=== PATIENT | female | born 1955 | race Caucasian/White ===

== ENCOUNTER → 2018-11-03 11:17 | Outpatient (POV) | payer BC, SELFPAY ==
[2018-11-03 11:45] VITALS: BP 154/90; PULSE 95; RESP 18; O2SAT 98; BMI 25.0
--- NOTE | 2018-11-03 12:43 | HMH.PMCON ---
Assessment and Plan (1) Sacroiliitis Current visit: Yes Status: Chronic Category: Medical Code(s): M46.1 - Sacroiliitis, not elsewhere classified - Assessment and plan all Dx Assessment and Plan for all problems:: Patient is failed over 6 months of conservative therapy. We will move forward with a right SI joint injection. I do believe it would be beneficial given the symptomology of the patient. Patient is continuing a home stretching program. We will follow-up with the patient after injection reassess her symptoms at that time. Dr. Elise has reviewed this note and agrees with this plan of care. This note was dictated using voice recognition software and may contain errors or omissions HPI - Data of Consult Consult date: 11/03/18 Requesting Physician: Ann Salas APRN Primary Care Provider: Dylan Sebastian MD Family Provider: Dr. Dylan Sebastian - Consult Narrative Reason for consult: Sacroiliitis History of present illness: Ms. Dotson is a 63 year old female who presents today for consultation in regards to her right SI joint pain. Patient has had pain for over a year. She states that constant. Some days are worse than others she has numbness and tingling in her but she she does have radiation into her groin and down her leg however not past the knee. She rates her pain today 5 out of 10. It is becoming difficult to do activities. Patient is failed conservative measures including medication and home stretching program. She is continuing her home stretching program. Patient and I talked about SI joint injection she would like to move forward with this. CC: Ann Salas APRN [facility] History I have reviewed the patient's past medical history: Yes Medical History: Reports:: Hyperlipidemia, Hypertension Denies:: Cancer, Diabetes Mellitus Type 1, Diabetes Mellitus Type 2, MRSA *Have you ever received a pneumonia vaccine?: Yes *Have you received a flu vaccine this season?: No Other Surgeries: Yes: Other (left foot injury repair) Amputation: No Fractures: No - *Social History Smoking Status: Never smoker Alcohol Intake: never *Occupational Status:: other Housing: house *Travel in the last 8 weeks: None Family Hx:: Non-contributory Review of Systems - Review of Systems ROS General: no recent weight change, no fever, no sleep disturbances Respiratory: no cough, no shortness of air, no recurring pulmonary infections Cardiovascular/Peripheral Vascular: No chest pain, No palpitations, no edema, no shortness of breath. Gastrointestinal: no incontinence, normal bowel movements reported Genitourinary: no incontinence Musculoskeletal:SI Joint pain Psychiatric: normal mood/ affect Neurological: [denies weakness in extremities], [denies balance issues] Meds Home Medications Medication Instructions Recorded Confirmed Type Atorvastatin Calcium [Atorvastatin 10 mg PO HS 11/03/18 11/03/18 History 10mg Tab] Cholecalciferol (Vitamin D3) 2,000 unit PO DAILY 11/03/18 11/03/18 History [Vitamin D3 1,000 Unit Cap] Meloxicam 15 mg PO DAILY 11/03/18 11/03/18 History Multivit-Min/FA/Lycopen/Lutein 1 each PO DAILY 11/03/18 11/03/18 History [Centrum Silver Tablet] [place]-3 Fatty Acids/Fish Oil 1 each PO DAILY 11/03/18 11/03/18 History [[place] 3 1,000 mg Softgel] hydroCHLOROthiazide [HCTZ 12.5mg 12.5 mg PO DAILY 11/03/18 11/03/18 History cap] Allergies Allergy/AdvReac Type Severity Reaction Status Date / Time codeine Allergy Intermediate Verified 11/03/18 11:45 Objective Vital signs: Pulse Resp BP Pulse Ox 95 H 18 154/90 H 98 11/03/18 11:45 11/03/18 11:45 11/03/18 11:45 11/03/18 11:45 Narrative: Physical Exam General: Alert and oriented x3, no acute distress, pleasant and cooperative, [on room air] Lungs: Resps E/U, Symmetrical chest expansion, Eyes: PERRL Musculoskeletal: Flexion and extension of lumbar spine somewhat g
--- NOTE | 2018-11-03 12:46 | P.CONS_ITS ---
Assessment and Plan (1) Sacroiliitis Current visit: Yes Status: Chronic Category: Medical Code(s): M46.1 - Sacroiliitis, not elsewhere classified - Assessment and plan all Dx Assessment and Plan for all problems:: Patient is failed over 6 months of conservative therapy. We will move forward with a right SI joint injection. I do believe it would be beneficial given the symptomology of the patient. Patient is continuing a home stretching program. We will follow-up with the patient after injection reassess her symptoms at that time. Dr. Elise has reviewed this note and agrees with this plan of care. This note was dictated using voice recognition software and may contain errors or omissions HPI - Data of Consult Consult date: 11/03/18 Requesting Physician: Ann Salas APRN Primary Care Provider: Dylan Sebastian MD Family Provider: Dr. Dylan Sebastian - Consult Narrative Reason for consult: Sacroiliitis History of present illness: Ms. Dotson is a 63 year old female who presents today for consultation in regards to her right SI joint pain. Patient has had pain for over a year. She states that constant. Some days are worse than others she has numbness and tingling in her but she she does have radiation into her groin and down her leg however not past the knee. She rates her pain today 5 out of 10. It is becoming difficult to do activities. Patient is failed conservative measures including medication and home stretching program. She is continuing her home stretching program. Patient and I talked about SI joint injection she would like to move forward with this. CC: Ann Salas APRN [facility] History I have reviewed the patient's past medical history: Yes Medical History: Reports:: Hyperlipidemia, Hypertension Denies:: Cancer, Diabetes Mellitus Type 1, Diabetes Mellitus Type 2, MRSA *Have you ever received a pneumonia vaccine?: Yes *Have you received a flu vaccine this season?: No Other Surgeries: Yes: Other (left foot injury repair) Amputation: No Fractures: No - *Social History Smoking Status: Never smoker Alcohol Intake: never *Occupational Status:: other Housing: house *Travel in the last 8 weeks: None Family Hx:: Non-contributory Review of Systems - Review of Systems ROS General: no recent weight change, no fever, no sleep disturbances Respiratory: no cough, no shortness of air, no recurring pulmonary infections Cardiovascular/Peripheral Vascular: No chest pain, No palpitations, no edema, no shortness of breath. Gastrointestinal: no incontinence, normal bowel movements reported Genitourinary: no incontinence Musculoskeletal:SI Joint pain Psychiatric: normal mood/ affect Neurological: [denies weakness in extremities], [denies balance issues] Meds Home Medications Medication Instructions Recorded Confirmed Type Atorvastatin Calcium [Atorvastatin 10 mg PO HS 11/03/18 11/03/18 History 10mg Tab] Cholecalciferol (Vitamin D3) 2,000 unit PO DAILY 11/03/18 11/03/18 History [Vitamin D3 1,000 Unit Cap] Meloxicam 15 mg PO DAILY 11/03/18 11/03/18 History Multivit-Min/FA/Lycopen/Lutein 1 each PO DAILY 11/03/18 11/03/18 History [Centrum Silver Tablet] [place]-3 Fatty Acids/Fish Oil 1 each PO DAILY 11/03/18 11/03/18 History [[place] 3 1,000 mg Softgel] hydroCHLOROthiazide [HCTZ 12.5mg 12.5 mg PO DAILY 11/03/18 11/03/18 History cap]
== END ==
PROVIDERS: PCP Family Medicine; Visit Provider Clinical Nurse Specialist Family Health
DX: M46.1 Sacroiliitis, not elsewhere classified (principal)
CPT/HCPCS: 99202

== ENCOUNTER → 2018-12-08 09:13 | Outpatient (POV) | payer BC, SELFPAY ==
--- NOTE | 2018-12-08 09:52 | HMH.PAINSOAP ---
[facility] Pain Management SOAP Note Subjective:: Present 63-year-old white female who presents today for follow-up after right SI joint injection. She has had 80% relief. Patient is much more active and able to take her walks in the evening. Her she rates her pain a 2 out of 10. Patient would like to repeat this 1 more time to see if we can get her even more benefit. She is tried conservative measures including medication, home stretching, she is continuing this. She does have a positive Mati's test Wilfredo's test and Bety test on the right side. She is also on anti-inflammatories. ROS General: no recent weight change, no fever, no sleep disturbances Respiratory: no cough, no shortness of air, no recurring pulmonary infections Cardiovascular/Peripheral Vascular: No chest pain, No palpitations, no edema, no shortness of breath. Gastrointestinal: no incontinence, normal bowel movements reported Genitourinary: no incontinence Musculoskeletal: Right SI joint pain Psychiatric: normal mood/ affect Neurological: [denies weakness in extremities], [denies balance issues] Objective:: Physical Exam General: Alert and oriented x3, no acute distress, pleasant and cooperative, [on room air] Lungs: Resps E/U, Symmetrical chest expansion, Eyes: PERRL Musculoskeletal: Flexion and extension of lumbar spine somewhat guarded secondary to pain, deep tendon reflexes normal, strength in upper and lower extremities [5/5], slightly antalgic gait noted the Neurological: speech clear, pump operator byproducts equal, no gross sensory deficits Assessment:: Sacroiliitis Plan:: We will plan a repeat right SI joint injection given the efficacy of this I believe it would be beneficial. Follow-up with the patient after this reassess her symptoms at that time she is been instructed to call the office if she has any issues prior to her next appointment. Dr. Elise has reviewed this note and agrees with this plan of care. This note was dictated using voice recognition software and may contain errors or omissions [facility] History I have reviewed the patient's past medical history: Yes Medical History: Reports:: Hyperlipidemia, Hypertension Denies:: Cancer, Diabetes Mellitus Type 1, Diabetes Mellitus Type 2, MRSA, Seizures *Have you ever received a pneumonia vaccine?: Yes *Have you received a flu vaccine this season?: No Other Medical History: Denies: Blood Transfusion Reaction Other Surgeries: Yes: Other (left foot injury repair) Amputation: No Fractures: No - *Social History Smoking Status: Never smoker Alcohol Intake: never *Occupational Status:: other Housing: house *Travel in the last 8 weeks: None Family Hx:: Coronary Artery Disease, Heart Attack, Hypertension
--- NOTE | 2018-12-08 09:55 | P.CONS_ITS ---
[facility] Pain Management SOAP Note Subjective:: Present 63-year-old white female who presents today for follow-up after right SI joint injection. She has had 80% relief. Patient is much more active and able to take her walks in the evening. Her she rates her pain a 2 out of 10. Patient would like to repeat this 1 more time to see if we can get her even more benefit. She is tried conservative measures including medication, home stretching, she is continuing this. She does have a positive Mati's test Wilfredo's test and Bety test on the right side. She is also on anti- inflammatories. ROS General: no recent weight change, no fever, no sleep disturbances Respiratory: no cough, no shortness of air, no recurring pulmonary infections Cardiovascular/Peripheral Vascular: No chest pain, No palpitations, no edema, no shortness of breath. Gastrointestinal: no incontinence, normal bowel movements reported Genitourinary: no incontinence Musculoskeletal: Right SI joint pain Psychiatric: normal mood/ affect Neurological: [denies weakness in extremities], [denies balance issues] Objective:: Physical Exam General: Alert and oriented x3, no acute distress, pleasant and cooperative, [on room air] Lungs: Resps E/U, Symmetrical chest expansion, Eyes: PERRL Musculoskeletal: Flexion and extension of lumbar spine somewhat guarded secondary to pain, deep tendon reflexes normal, strength in upper and lower extremities [5/5], slightly antalgic gait noted the Neurological: speech clear, dietetics director equal, no gross sensory deficits Assessment:: Sacroiliitis Plan:: We will plan a repeat right SI joint injection given the efficacy of this I believe it would be beneficial. Follow-up with the patient after this reassess her symptoms at that time she is been instructed to call the office if she has any issues prior to her next appointment. Dr. Elise has reviewed this note and agrees with this plan of care. This note was dictated using voice recognition software and may contain errors or omissions [facility] History I have reviewed the patient's past medical history: Yes Medical History: Reports:: Hyperlipidemia, Hypertension Denies:: Cancer, Diabetes Mellitus Type 1, Diabetes Mellitus Type 2, MRSA, Seizures *Have you ever received a pneumonia vaccine?: Yes *Have you received a flu vaccine this season?: No Other Medical History: Denies: Blood Transfusion Reaction Other Surgeries: Yes: Other (left foot injury repair) Amputation: No Fractures: No - *Social History Smoking Status: Never smoker Alcohol Intake: never *Occupational Status:: other Housing: house *Travel in the last 8 weeks: None Family Hx:: Coronary Artery Disease, Heart Attack, Hypertension
[2018-12-08 11:24] VITALS: BP 142/77; PULSE 66; RESP 18; O2SAT 98; BMI 25.0
== END ==
PROVIDERS: PCP Family Medicine; Visit Provider Clinical Nurse Specialist Family Health
DX: M46.1 Sacroiliitis, not elsewhere classified (principal)
CPT/HCPCS: 99212

== ENCOUNTER → 2019-08-06 14:30 | Outpatient (CLI) | payer BC, SELFPAY ==
--- NOTE | 2019-08-06 14:45 | XR_ITS ---
PROCEDURE: XR SHOULDER RT MIN 2V CLINICAL INDICATION: RT SHOULDER ROTATOR CUFF SYNDROME Shoulder pain COMPARISON: No exams were available for comparison FINDINGS: No fracture or dislocation. There is some minimal exostosis along the undersurface of the a chromium with subacromial stenosis which may result in impingement upon the rotator cuff. A small defect is present in the greater tubercle of the humerus well-circumscribed and may represent a small subchondral cyst which may also be seen with rotator cuff disease. IMPRESSION: Subacromial stenosis. Small well-circumscribed cystic area along the greater tubercle of the humerus which could be due to a subchondral cyst. These findings may be seen with rotator cuff disease and could be better evaluated with MRI if clinically warranted Dictated by: Antolin Martínez MD 08/06/2019 16:03 Electronically signed by Antolin Martínez MD in [place] 08/06/2019 16:03
== END ==
PROVIDERS: PCP Family Medicine; Visit Provider Family Medicine
DX: M75.101 Unspecified rotator cuff tear or rupture of right shoulder, not specified as traumatic (principal)
CPT/HCPCS: 73030

== ENCOUNTER 2019-09-24 08:00 | Outpatient (RCR) | payer BC, SELFPAY ==
--- NOTE | 2019-08-12 14:57 | HMH.OTOPEV ---
OT Inpatient Evaluation Rehab OT Outpatient Eval Start: 08/12/19 14:46 Freq: Status: Active Protocol: Document 08/12/19 14:46 SOHEILA (Rec: 08/12/19 14:57 SOHEILA [id number]) Electronically Signed By Modesto Chavez OT 08/12/19 14:46 Outpatient Therapy Subjective History Subjective History Pt is a 64 year old female who reports to therapy for initial evaluation to R shoulder. Pt explains her shoulder began hurting her ~2- 3 months ago. 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 She completed deep spring cleaning including block trimming, using large power tools, and cleaning 28 sets of windows. She has rested the arm, for ~1 month, but is continuing to have pain in the bicep tendon area and A/C joint. At this time she demonstrates with a SLIGHT decrease in AROM and strength at right shoulder. Pt will continue to be seen twice a week in order to address all deficits. Chief Complaint Pain,Stiff,Weakness Symptom Type Ache,Throb,Sharp,Dull,Burning Symptoms Relieved By Rest/Positioning Symptoms Aggravated By Physical Activity,Twisting, Lifting Prior Functional Limitations None Current Functional Limitations Reaching,Lifting,Housework, Dressing,Driving,Sleeping, Recreation Activity Symptom Description Intermittent,Activity Dependent Level of pain today (0-10) 0 Pain scale - at its best (0-10) 0 Pain scale - at its worst (0-10) 7 Shoulder/Elbow Eval Shoulder Objective Measurements Shoulder ROM Right Shoulder Abduction Active Range of 142 degrees Motion (degrees) Shoulder Flexion Active Range of Motion 135 degrees (degrees) Query Text: Shoulder External Rotation Active Range 60 degrees of Motion (degrees) Shoulder Internal Rotation Active Range 70 degrees of Motion (degrees) pain with active ROM shoulder exam left standard pain with passive ROM shoulde
--- NOTE | 2019-09-08 15:52 | HMH.RHREAS ---
Rehab Reassessment Rehab OP Re-assessment Start: 09/08/19 15:10 Freq: Status: Active Protocol: Document 09/08/19 15:11 RMARSHALL (Rec: 09/08/19 15:51 RMARSHALL [id number]) Electronically Signed By Modesto Chavez OT 09/08/19 15:11 Rehab Re-assessment Subjective Subjective It seems much better! Objective Objective Notes Pt continues to be seen twice a week in order to address L shoulder deficits. Each session pt engages in L shoulder AROM/AAROM/ Strengthening exercises. Pt also receives modalities in order to decrease pain/ inflammation at L shoulder. Assessment Progress Assessment Progressing as Expected Assessment Notes Pt reports she believes she has improved significantly since beginning therapy. Pt explains she notices she is able to move the shoulder better and is having less pain . As of right now pt rates her pain at a 2-3/10 at worst. Pt also reports she feels she is 50-75% better since beginning therapy. After re- evaluation pt presents with a great increase in AROM and strenth at right shoulder. 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 Pt continues to be slightly weak in right shoulder. Therapist would like to continue strengthening prior to discharge. Goals Not Met MMT goals Revised Goals Continue progressing towards all MMT goals written on initial evaluation. Plan Plan Continue with OT plan of care at this time. Frequency of Therapy 2x's a week Duration of therapy 2 more w
== END 2019-09-24 08:05 | disposition home or self-care (01) ==
LOC: OT 08:00
PROVIDERS: PCP Family Medicine; Visit Provider Family Medicine
DX: M75.101 Unspecified rotator cuff tear or rupture of right shoulder, not specified as traumatic (principal)
CPT/HCPCS: 97014; 97110; 97164; 97166; G0283

== ENCOUNTER → 2019-12-29 12:35 | Outpatient (POV) | payer BC, SELFPAY | PROVIDERS: Visit Provider Dermatology | DX: Z00.00 Encounter for general adult medical examination without abnormal findings (principal) ==

== ENCOUNTER → 2020-07-20 18:01 | Outpatient (CLI) | payer BC, SELFPAY | PROVIDERS: PCP Family Medicine | DX: H02.9 Unspecified disorder of eyelid (principal) ==

== ENCOUNTER → 2020-08-16 13:35 | Outpatient (POV) | payer BC, SELFPAY | PROVIDERS: Visit Provider Dermatology | DX: Z00.00 Encounter for general adult medical examination without abnormal findings (principal) ==

== ENCOUNTER 2021-03-05 11:23 | Emergency (ER) | payer MEDICARE, BC, SELFPAY ==
[2021-03-05 13:10] VITALS: BP 148/91; PULSE 102; RESP 21; TEMP 36.9; O2SAT 97; BMI 25.0
--- NOTE | 2021-03-05 13:39 | HMH.EDUTC ---
[facility] Disposition Clinical Impression: Sinusitis Qualifiers: Sinusitis location: maxillary Chronicity: acute Recurrence: non-recurrent Qualified Code(s): J01.00 - Acute maxillary sinusitis, unspecified Disposition: Home, Self-Care Condition on Discharge: Good Instructions: DI for Sinusitis Additional Instructions: Start antibiotic patient to take as ordered for a full length of time even if you feel better. Sinus infections do not get better overnight. It may take 2-3 days to notice much improvement so be sure to use conservative measures as discussed for symptoms. Flonase 1 spray each nostril daily to help with nasal congestion, sinus and ear pressure/information Increase fluids Humidifier/vaporizer as needed Tylenol and ibuprofen as needed for fever or pain. If symptoms do not improve or get worse return or be seen in the ER Follow-up with primary care this week Prescriptions: Fluticasone Propionate [Flonase 50mcg nasal spray 16gm] 1 spr NS DAILY 14 Days #9.9 ml Prescription Printed Azithromycin [Zithromax 250mg tab] 250 mg PO DIRECTED #6 tab Prescription Printed Referrals: Dylan Sebastian MD [Primary Care Provider] - Time of Disposition: 13:48 Medical Decision Making - Gonzalo Inquiry Pt receiving controlled substance: No Vital Signs: 03/05/21 13:10 Temperature 98.4 F Temperature Source Oral Pulse Rate [Right Brachial] 102 H Respiratory Rate 21 Blood Pressure [Right Arm] 148/91 H Blood Pressure Mean [Right Arm] 110 Blood Pressure Source [Right Arm] Automatic Cuff Blood Pressure Position [Right Arm] Sitting 02 Sat by Pulse Oximetry 97 Oxygen Delivery Method Room Air [facility] HPI - General Chief complaint: Urgent Treatment Center Stated complaint: h/a, congestion Time Seen by Provider: 03/05/21 13:44 Mode of Arrival: Ambulatory Source of Information: Patient Limitations: No Limitations Description of Symptoms (Recalled from Triage Doc. by RN): PATIENT C/O SINUS PRESSURE AND CONGESTION X 2 WEEKS HEENT Symptoms (Recalled from RN notes): Yes Resp Symptoms (Recalled from RN notes): No Skin Symptoms (Recalled from RN notes): No MS Symptoms (Recalled from RN notes): No Functional Status (Recalled from RN notes): WNL - History of Present Illness Provider Complaint: 66 yr old female presnets for sinus pressure,green nasal drainage,cough, sinus pain and pressure behind eyes for 2 weeks. - Related Data Home Medications Medication Instructions Recorded Confirmed Atorvastatin Calcium [Atorvastatin 10 mg PO HS 11/03/18 11/18/18 10mg Tab] Cholecalciferol (Vitamin D3) 2,000 unit PO DAILY 11/03/18 11/18/18 [Vitamin D3 1,000 Unit Cap] Meloxicam 15 mg PO DAILY 11/03/18 11/18/18 Multivit-Min/FA/Lycopen/Lutein 1 each PO DAILY 11/03/18 11/18/18 [Centrum Silver Tablet] [place]-3 Fatty Acids/Fish Oil 1 each PO DAILY 11/03/18 11/18/18 [[place]aty 3 1,000 mg Softgel] hydroCHLOROthiazide [HCTZ 12.5mg 12.5 mg PO DAILY 11/03/18 11/18/18 cap] Previous Rx's Medication Instructions Recorded Azithromycin [Zithromax 250mg 250 mg PO DIRECTED #6 tab 03/05/21 tab] Fluticasone Propionate [Flonase 1 spr NS DAILY 14 Days #9.9 ml 03/05/21 50mcg nasal spray 16gm] Allergies Allergy/AdvReac Type Severity Reaction Status Date / Time codeine Allergy Intermediate Verified 11/03/18 11:45 - Worker's Comp Is this a Worker's Comp case?: No [facility] History - Hepatitis A Screen Drug use history?: No High risk sexual behaviors?: No History of sexually transmitted infection?: No Currently employed?: No Childcare worker?: No Do you have indoor plumbing?: Yes Do you have electricity?: Yes Attestation statement:: This patient has been screened for Hepatitis A risk factors. I have reviewed the patient's past medical history: Yes Medical History: Reports:: Hyperlipidemia, Hypertension Denies:: Cancer, Diabetes Mellitus Type 1, Diabetes Mellitus Type 2, MRSA, Seizures Other Medical
[2021-03-05 14:03] VITALS: BP 148/91; PULSE 102; RESP 21; TEMP 36.9; O2SAT 97
== END 2021-03-05 14:10 | disposition home or self-care (01) ==
PROVIDERS: Emergency Provider Nurse Practitioner; PCP Family Medicine
DX: J01.00 Acute maxillary sinusitis, unspecified (principal); I10 Essential (primary) hypertension; E78.5 Hyperlipidemia, unspecified
CPT/HCPCS: G0463; 96372; 99202

== ENCOUNTER 2021-06-18 09:51 | Emergency (ER) | payer MEDICARE, SELFPAY ==
--- NOTE | 2021-06-18 10:07 | XR_ITS ---
PROCEDURE INFORMATION: Exam: XR Left Ankle Exam date and time: 06/18/2021 10:02 AM Age: 66 years old Clinical indication: Difficulty in walking and swelling, leg or foot; Additional info: Fall left foot and ankle pain/ bruising and swelling at ankle. TECHNIQUE: Imaging protocol: XR Left ankle. Views: 3 or more views. COMPARISON: No relevant prior studies available. FINDINGS: Bones/joints: No acute fracture or malalignment. Joint spaces are maintained. Osteopenia. Soft tissues: Soft tissue swelling about the lateral ankle. IMPRESSION: No acute fracture or malalignment.
--- NOTE | 2021-06-18 10:07 | XR_ITS ---
PROCEDURE INFORMATION: Exam: XR Left Foot Exam date and time: 06/18/2021 10:04 AM Age: 66 years old Clinical indication: Difficulty in walking and swelling, leg or foot; Additional info: Fall left foot and ankle pain/ bruising and swelling at ankle. TECHNIQUE: Imaging protocol: XR Left foot. Views: 3 or more views. COMPARISON: CR XR ANKLE LT MIN 3V 06/18/2021 10:02 AM FINDINGS: Bones/joints: No acute fracture or malalignment. Mild 1st MTP joint degenerative changes. Osteopenia. Os navicularis. Soft tissues: Normal. IMPRESSION: No acute fracture or malalignment.
[2021-06-18 10:26] VITALS: BP 148/82; PULSE 81; RESP 16; TEMP 37.1; O2SAT 98; BMI 24.6
--- NOTE | 2021-06-18 10:32 | HMH.EDUTC ---
[facility] [place] Clinical Impression: Left ankle sprain Qualifiers: Encounter type: initial encounter Involved ligament of ankle: unspecified ligament Qualified Code(s): S93.402A - Sprain of unspecified ligament of left ankle, initial encounter Disposition: Home, Self-Care Condition on Discharge: Good Instructions: DI for Ankle Sprain Additional Instructions: Rest the extremity, apply ice for 15 minutes as tolerated three or four times per day, Elevate the extremity as tolerated while you are resting. Take ibuprofen for pain. I sent in a prescription to your pharmacy. Follow up with Dr. Rankin (podiatry). Sometimes there can be fractures that don't show up well on the first set of x-rays. So, you should follow up if you continue to have symptoms. I put in a referral but you need to call her office and schedule an appointment. Follow up with your regular doctor. GO TO THE ER FOR ANY WORSENING SYMPTOMS Prescriptions: Ibuprofen [Ibuprofen 600mg Tablet] 600 mg PO Q6HP PRN #30 tab PRN Reason: Mild Pain Transmission Status: Pending to [facility] Referrals: Francisca Blake MD [Primary Care Provider] - Caitlin Rankin DPM [Staff Physician] - Time of Disposition: 11:28 Medical Decision Making - Medical Records Medical records reviewed: No: I reviewed the patient's medical records. - Gonzalo Inquiry Pt receiving controlled substance: No Vital Signs: 06/18/21 10:26 Temperature 98.8 F Temperature Source Oral Pulse Rate [Left] 81 Respiratory Rate 16 Blood Pressure [Right Arm] 148/82 H Blood Pressure Mean [Right Arm] 104 02 Sat by Pulse Oximetry 98 - Radiology Data #1 Image(s): Ankle Image Reviewed: Yes I reviewed the patient's radiology image, Yes I have reviewed radiologist's interpretation Preliminary Findings: Normal/NAD, No Fracture Seen PROCEDURE INFORMATION: Exam: XR Left Ankle Exam date and time: 06/18/2021 10:02 AM Age: 66 years old Clinical indication: Difficulty in walking and swelling, leg or foot; Additional info: Fall left foot and ankle pain/ bruising and swelling at ankle. TECHNIQUE: Imaging protocol: XR Left ankle. Views: 3 or more views. COMPARISON: No relevant prior studies available. FINDINGS: Bones/joints: No acute fracture or malalignment. Joint spaces are maintained. Osteopenia. Soft tissues: Soft tissue swelling about the lateral ankle. IMPRESSION: No acute fracture or malalignment. #2 Image(s): Foot/Toes Image Reviewed: Yes I reviewed the patient's radiology image, Yes I have reviewed radiologist's interpretation Preliminary Findings: Normal/NAD, No Fracture Seen PROCEDURE INFORMATION: Exam: XR Left Foot Exam date and time: 06/18/2021 10:04 AM Age: 66 years old Clinical indication: Difficulty in walking and swelling, leg or foot; Additional info: Fall left foot and ankle pain/ bruising and swelling at ankle. TECHNIQUE: Imaging protocol: XR Left foot. Views: 3 or more views. COMPARISON: CR XR ANKLE LT MIN 3V 06/18/2021 10:02 AM FINDINGS: Bones/joints: No acute fracture or malalignment. Mild 1st MTP joint degenerative changes. Osteopenia. Os navicularis. Soft tissues: Normal. IMPRESSION: No acute fracture or malalignment. [facility] [place] - General Stated complaint: ao left ankle injury Time Seen by Provider: 06/18/21 10:32 Mode of Arrival: Ambulatory Source of Information: Patient Limitations: No Limitations Description of Symptoms (Recalled from Triage Doc. by RN): pt states she missed her bottom step yesterday and is now having L ankle, pain, bruising and swelling. HEENT Symptoms (Recalled from RN notes): No Resp Symptoms (Recalled from RN notes): No Skin Symptoms (Recalled from RN notes): No MS Symptoms (Recalled from RN notes): Yes Functional Status (Recalled
[2021-06-18 11:23] VITALS: BP 148/82; PULSE 81; RESP 16; TEMP 37.1
== END 2021-06-18 11:33 | disposition home or self-care (01) ==
PROVIDERS: Emergency Provider Nurse Practitioner Family; PCP Family Medicine
DX: S93.402A Sprain of unspecified ligament of left ankle, initial encounter (principal); X50.1XXA Overexertion from prolonged static or awkward postures, initial encounter
CPT/HCPCS: 29515; 73610; 73630; 99212; G0463

== ENCOUNTER → 2022-11-07 10:03 | Outpatient (CLI) | payer MEDICARE, SELFPAY ==
[2022-11-07 10:18] LABS: Coronavirus 19, PCR Not Detected (NotDetected); Influenza A, PCR Not Detected (NotDetected); Influenza B, PCR Not Detected (NotDetected)
== END ==
PROVIDERS: PCP Family Medicine; Visit Provider Internal Medicine
DX: J02.9 Acute pharyngitis, unspecified (principal)
CPT/HCPCS: 87070; 87636

== ENCOUNTER → 2022-11-12 15:08 | Outpatient (CLI) | payer MEDICARE, SELFPAY ==
[2022-11-12 13:08] LABS: Basophils % 0.6 % (0.1-2.0); Eosinophils # 0.1 K/mm3 (0.0-0.4); Hemoglobin 14.8 g/dL (12.2-16.2); Lymphocytes # 1.3 K/mm3 (0.7-4.5); Lymphocytes % 37.6 % (10-50); Mean Corpuscular HGB Conc 33.6 g/dL (31.8-35.4); Mean Corpuscular Hemoglobin 31.8 pg (27.0-31.2); Mean Corpuscular Volume 94.6 fl (81-99); Mean Platelet Volume 8.2 fl (7.4-10.4); Monocytes # 0.2 K/mm3 (0.1-1.0); Monocytes % 6.3 % (1.7-9.3); Neutrophils # 1.8 K/mm3 (1.8-7.8); Neutrophils % 51.5 % (37.0-80.0); Platelet Count 242 K/mm3 (142-424); Red Blood Count 4.65 M/mm3 (4.20-5.40); Red Cell Distribution Width 13.3 % (11.5-17.5); White Blood Count 3.6 K/mm3 (4.8-10.8)
[2022-11-12 14:15] LABS: Alanine Aminotransferase 29 U/L (12-78); Albumin Level 4.9 g/dl (3.5-5.0); Albumin/Globulin Ratio 1.6 (1.1-1.8); Alkaline Phosphatase 116 U/L (38-126); Aspartate Amino Transferase 41 U/L (14-36); Bilirubin,Total 0.3 mg/dl (0.2-1.3); Blood Urea Nitrogen 19 mg/dl (7-17); Calcium 9.5 mg/dl (8.4-10.2); Carbon Dioxide 26 mmol/L (22.0-30.0); Chloride 101 mmol/L (98-107); Estimated Glomerular Filt Rate 63 ml/min (>60); GFR (African American) 76 ML/MIN (>60); Globulin 3.1 g/dL (1.3-3.2); Glucose 104 mg/dl (74-100); Sodium 140 mmol/L (136-145)
== END ==
PROVIDERS: PCP Nurse Practitioner Family; Visit Provider Nurse Practitioner Family
DX: J01.00 Acute maxillary sinusitis, unspecified (principal); I10 Essential (primary) hypertension
CPT/HCPCS: 80053; 85025

== ENCOUNTER → 2022-12-03 12:00 | Outpatient (CLI) | payer MEDICARE, SELFPAY ==
[2022-12-03 16:04] LABS: Microscopic, Urine URINE MICROSCOPIC (MICROSCOPIC)
[2022-12-03 16:22] LABS: Appearance,Urine CLEAR (Clear); Bilirubin,Urine Negative (Negative); Blood, Urine Negative (Negative); Color,Urine YELLOW (Yellow); Glucose,Urine (UA) Negative (Negative); Ketones,Urine Negative (Negative); Leukocyte Esterase,Urine Negative (Negative); Nitrate,Urine Negative (Negative); Protein,Urine TRACE (Negative); Specific Gravity, Urine 1.015 (1.005-1.030); Urobilinogen,Urine 0.2 EU/dl (0.2)
[2022-12-03 16:29] LABS: Squamous Epithelial Cell,Urine Occasional #/hpf (0-5); WBC,Urine Occasional #/hpf (0-3)
[2022-12-03 17:42] LABS: Basophils % 0.9 % (0.1-2.0); Eosinophils # 0.5 K/mm3 (0.0-0.4); Hematocrit 45.4 % (37.0-47.0); Hemoglobin 14.8 g/dL (12.2-16.2); Lymphocytes # 1.3 K/mm3 (0.7-4.5); Mean Corpuscular HGB Conc 32.5 g/dL (31.8-35.4); Mean Corpuscular Hemoglobin 30.6 pg (27.0-31.2); Mean Platelet Volume 9.9 fl (7.4-10.4); Monocytes # 0.3 K/mm3 (0.1-1.0); Monocytes % 6.3 % (1.7-9.3); Neutrophils # 2.2 K/mm3 (1.8-7.8); Neutrophils % 50.9 % (37.0-80.0); Platelet Count 357 K/mm3 (142-424); Red Blood Count 4.83 M/mm3 (4.20-5.40); Red Cell Distribution Width 13.6 % (11.5-17.5); White Blood Count 4.3 K/mm3 (4.8-10.8)
[2022-12-03 18:15] LABS: Hemoglobin A1C 5.7 % (4.0-6.0)
[2022-12-03 18:55] LABS: Alanine Aminotransferase 31 U/L (12-78); Albumin Level 5.1 g/dl (3.5-5.0); Albumin/Globulin Ratio 1.7 (1.1-1.8); Alkaline Phosphatase 112 U/L (38-126); Anion Gap 16.7 mEq/L (5-15); Aspartate Amino Transferase 38 U/L (14-36); Bilirubin,Total 0.7 mg/dl (0.2-1.3); Blood Urea Nitrogen 20 mg/dl (7-17); Calcium 9.8 mg/dl (8.4-10.2); Carbon Dioxide 28 mmol/L (22.0-30.0); Chloride 100 mmol/L (98-107); Cholesterol 265 mg/dl (140-200); Estimated Glomerular Filt Rate 63 ml/min (>60); GFR (African American) 76 ML/MIN (>60); Glucose 92 mg/dl (74-100); HDL Cholesterol 67 mg/dl (40-60); Magnesium 2.3 mg/dl (1.6-2.3); Phosphorous 4.1 mg/dl (2.5-4.5); Potassium 4.7 mmoL/L (3.5-5.1); Sodium 140 mmol/L (136-145); Total Protein,Serum 8.1 g/dl (6.3-8.2); Triglycerides 224 mg/dl (30-150); VLDL Cholesterol 45 mg/dL (0-40)
[2022-12-03 19:06] LABS: Direct LDL Cholesterol 129.86 mg/dL (100-129)
[2022-12-03 19:11] LABS: Free T4 (Free Thyroxine) 1.22 ng/dl (0.78-2.19)
[2022-12-03 19:12] LABS: 25-OH Vitamin D, Total 79.7 ng/mL (30-100)
[2022-12-03 19:25] LABS: Thyroid Stimulating Hormone 1.69 uIU/mL (0.465-4.68)
[2022-12-03 19:44] LABS: Vitamin B12 638 pg/mL (239-931)
== END ==
PROVIDERS: PCP Nurse Practitioner Family; Visit Provider Nurse Practitioner Family
DX: I10 Essential (primary) hypertension (principal); R53.83 Other fatigue; E78.5 Hyperlipidemia, unspecified; R25.2 Cramp and spasm; E55.9 Vitamin D deficiency, unspecified; R73.01 Impaired fasting glucose
CPT/HCPCS: 80053; 80061; 81001; 82306; 82607; 83036; 83735; 84100; 84155; 84439; 84443; 85025; 87086

== ENCOUNTER → 2022-12-10 08:59 | Outpatient (CLI) | payer MEDICARE, SELFPAY ==
--- NOTE | 2022-12-10 08:59 | XR_ITS ---
FINAL REPORT TECHNIQUE: Bone densitometry calculations of the lumbar spine and left hip were obtained. CLINICAL HISTORY: postmenopausal DEXA screening FINDINGS: Using L1-4, the bone mineral density of the spine is 0.89 g/cm2, corresponding to T-score of -1.4. Using the left hip, the bone mineral density of the femoral neck is 0.65 g/cm2, corresponding to a T-score of -2.4. Using the right hip, the bone mineral density of the femoral neck is 0.70 g/cm2, corresponding to a T-score of - 1.9 NOTE: T-score: Standard deviation compared with peak bone mass of young adult mean. *Following the recommendations of the International Society of Bone densitometry, classification of hip BMD is based on the lower of two T-scores; total hip or femoral neck. IMPRESSION: Diminished bone mineral density of the lumbar spine and hips consistent with osteopenia. Reviewed, Interpreted and Dictated by Grupo Erwin MD Transcribed by Lynn Jaquez Authenticated and . [facility]
== END ==
PROVIDERS: PCP Nurse Practitioner Family; Visit Provider Nurse Practitioner Family
DX: N95.9 Unspecified menopausal and perimenopausal disorder (principal); Z13.820 Encounter for screening for osteoporosis
CPT/HCPCS: 77080

== ENCOUNTER → 2022-12-25 13:40 | Outpatient (CLI) | payer MEDICARE, SELFPAY ==
--- NOTE | 2022-12-25 13:44 | XR_ITS ---
FINAL REPORT CLINICAL HISTORY: Foot [place] FINDINGS: 3 views of the left foot were obtained. There is no acute fracture or dislocation. There are mild degenerative changes. There is a small plantar calcaneal spur. There is a chronic deformity of the first proximal phalanx. There is presumed postoperative change in the proximal aspect of the great toe. IMPRESSION: No acute process. Reviewed, Interpreted and Dictated by Zoltan Bennett III, MD Transcribed by Tj Rodriguez Authenticated and [facility]
--- NOTE | 2022-12-25 13:44 | XR_ITS ---
FINAL REPORT CLINICAL HISTORY: Foot pain FINDINGS: Right foot Three views were obtained. There is no acute fracture or dislocation. There are mild degenerative changes. No soft tissue abnormality is identified. IMPRESSION: No acute process. Reviewed, Interpreted and Dictated by Zoltan Bennett III, MD Transcribed by Kimberley Nelson Authenticated and [facility]
== END ==
PROVIDERS: PCP Nurse Practitioner Family; Visit Provider Nurse Practitioner Family
DX: M79.671 Pain in right foot (principal); M79.672 Pain in left foot
CPT/HCPCS: 73630

== ENCOUNTER → 2023-01-31 23:00 | Outpatient (CLI) | payer MEDICARE, SELFPAY | PROVIDERS: PCP Nurse Practitioner Family; Visit Provider Internal Medicine | DX: J06.9 Acute upper respiratory infection, unspecified (principal) ==

== ENCOUNTER → 2023-01-31 23:00 | Outpatient (CLI) | payer MEDICARE, SELFPAY ==
[2023-01-31 14:32] LABS: Adenovirus,PCR Not Detected (NotDetected); Coronavirus 19, PCR Not Detected (NotDetected); Coronavirus 229E Not Detected (NotDetected); Coronavirus NL63 Not Detected (NotDetected); Coronavirus OC43 Not Detected (NotDetected); Coronovirus HKU1,PCR Not Detected (NotDetected); Human Metapneumovirus Not Detected (NotDetected); Influenza A, PCR Not Detected (NotDetected); Influenza AH1, 2009 Not Detected (NotDetected); Influenza AH1, PCR Not Detected (NotDetected); Influenza AH3,PCR Not Detected (NotDetected); Influenza B, PCR Not Detected (NotDetected); Parainfluenza 1, PCR Not Detected (NotDetected); Parainfluenza 2, PCR Not Detected (NotDetected); Parainfluenza 3, PCR Not Detected (NotDetected); Parainfluenza 4, PCR Not Detected (NotDetected); Respiratory Syncytial Virus Not Detected (NotDetected); Rhinovirus/Enterovirus Not Detected (NotDetected)
== END ==
PROVIDERS: PCP Nurse Practitioner Family; Visit Provider Internal Medicine
DX: J06.9 Acute upper respiratory infection, unspecified (principal); J02.9 Acute pharyngitis, unspecified; R50.9 Fever, unspecified; R05.9 Cough, unspecified; R53.83 Other fatigue; B96.89 Other specified bacterial agents as the cause of diseases classified elsewhere; R09.89 Other specified symptoms and signs involving the circulatory and respiratory systems
CPT/HCPCS: 87070; 87205; 87632; 87635

== ENCOUNTER 2023-02-07 11:56 | Day surgery (SDC) | payer MEDICARE, SELFPAY ==
[2023-01-29 11:19] VITALS: BMI 26.6
[2023-02-07 12:29] VITALS: BP 131/81; PULSE 75; RESP 18; TEMP 36.5; O2SAT 99
--- NOTE | 2023-02-07 12:38 | EXP.ANES.CKL ---
[facility] Disclaimer: The information contained in this section may have been updated after the patient was seen, as this information can be updated by other users. Medical History Hyperlipidemia Hypertension Left ankle sprain Sacroiliitis Sinusitis URI (upper respiratory infection) Vaginal yeast infection Surgical History H/O: hysterectomy History of D&C Family History Mother Hypertension Father Hypertension Social History Smoking Status: Never smoker alcohol intake: never substance use type: denies use current occupational status: employed Travel in the last 8 weeks: None housing: house current occupational exposures/hazards: No caffeine: Yes [facility] Anesthesia Checklist Patient Identification Patient Identification: Arm Band and Verbal (Name & ) Structural Data Admitted From: Home Planned Operative Procedure/s: Colonoscopy Consent for Planned Operative Procedure(s) Verified: Yes NPO Status Verified Time NPO: 00:00 Additional verifications Anesthesia Reactions: No Hx Blood Transfusions: No Blood Transfusion Reaction: No Airway Assessment Mallampati Score:: Class II C-Spine Mobility Assessed: Yes TMJ Mobility Assessed: Yes Dentition: Dentures-poor fitting Neurological Assessment Level of Consciousness: Awake Hx Seizures: No Numbness or tingling in extremities: No Anesthesia Plan Anesthesia Risk discussed: Yes Anesthesia Plan: Verified ASA Class: II Anesthesia Type: MAC
[2023-02-07 13:14] VITALS: O2SAT 99
[2023-02-07 13:39] VITALS: BP 120/66; PULSE 77; RESP 16; TEMP 36.1; O2SAT 99
--- NOTE | 2023-02-07 13:39 | HMH.SCOPE ---
Procedure: Date: 02/07/23 Patient Date of :: 1955 Procedure Performed:: Screening colonoscopy Indications:: Colon cancer screening Performing Provider:: James Ramírez MD Referring Provider:: Toyin Mabry APRN Sedation:: Propofol Procedure:: After placing the patient in the left lateral decubitus position, the colonoscopy was gently inserted into the rectum and under direct visualization advanced to the cecum which was identified by transillumination in the right lower quadrant, identification of the ileocecal valve, appendiceal orifice, and cecal strap. Color, texture, mucosa, and anatomy of the colon were carefully examined with the scope. Findings:: Anal canal: normal Rectum: normal Sigmoid colon: normal without polyps or inflammatory changes Descending colon: normal without polyps or inflammatory changes Splenic flexure: normal Transverse colon: normal without polyps or inflammatory changes Hepatic flexure: normal Ascending colon: normal without polyps or inflammatory changes Cecum: normal Terminal ileum: not visualized Impression: Normal colonoscopy Recommendations:: Follow up examination in about TEN years or so, sooner if clinically indicated. Complications:: None Estimated blood obtained (mL): 0 Colonoscopy Component Colonoscopy Component Was a colonoscopy performed during today's procedure?: Yes Recommended follow up colonoscopy of at least 10 years?: Yes
[2023-02-07 13:49] VITALS: BP 145/77; PULSE 80; RESP 16; O2SAT 100
[2023-02-07 13:59] VITALS: BP 124/76; PULSE 82; RESP 16; O2SAT 100
== END 2023-02-07 14:25 | disposition home or self-care (01) ==
PROVIDERS: PCP Nurse Practitioner Family; Visit Provider Internal Medicine Gastroenterology
PROC: 0DJD8ZZ Inspection of Lower Intestinal Tract, Via Natural or Artificial Opening Endoscopic (ICD-10-PCS; CPT 45378; principal; 2023-02-07 13:00)
DX: K59.04 Chronic idiopathic constipation (principal); Z12.11 Encounter for screening for malignant neoplasm of colon
CPT/HCPCS: G0121

== ENCOUNTER → 2023-03-11 14:29 | Outpatient (CLI) | payer MEDICARE, SELFPAY ==
[2023-03-11 14:55] LABS: Alanine Aminotransferase 33 U/L (12-78); Albumin Level 4.5 g/dl (3.5-5.0); Albumin/Globulin Ratio 1.6 (1.1-1.8); Alkaline Phosphatase 88 U/L (38-126); Anion Gap 11.3 mEq/L (5-15); Aspartate Amino Transferase 38 U/L (14-36); Bilirubin,Total 0.5 mg/dl (0.2-1.3); Blood Urea Nitrogen 28 mg/dl (7-17); Carbon Dioxide 27 mmol/L (22.0-30.0); Chloride 103 mmol/L (98-107); Chol/HDL Ratio 3.2 (1-3.5); Cholesterol 203 mg/dl (140-200); Estimated Glomerular Filt Rate 62 ml/min (>60); GFR (African American) 76 ML/MIN (>60); Globulin 2.8 g/dL (1.3-3.2); Glucose 93 mg/dl (74-100); HDL Cholesterol 64 mg/dl (40-60); Potassium 4.3 mmoL/L (3.5-5.1); Sodium 137 mmol/L (136-145); Total Protein,Serum 7.3 g/dl (6.3-8.2); Triglycerides 175 mg/dl (30-150); VLDL Cholesterol 35 mg/dL (0-40)
[2023-03-11 15:06] LABS: Direct LDL Cholesterol 102.94 mg/dL (100-129)
== END ==
PROVIDERS: PCP Nurse Practitioner Family; Visit Provider Nurse Practitioner Family
DX: E78.5 Hyperlipidemia, unspecified (principal); I10 Essential (primary) hypertension
CPT/HCPCS: 80053; 80061

== ENCOUNTER → 2023-03-13 16:00 | Outpatient (CLI) | payer MEDICARE, SELFPAY | LOC: LAB.DROPOF 16:01 | PROVIDERS: PCP Nurse Practitioner Family; Visit Provider Nurse Practitioner Family | DX: B35.1 Tinea unguium (principal); M79.675 Pain in left toe(s) | CPT/HCPCS: 87102; 87206; 87220 ==

== ENCOUNTER 2023-05-09 08:21 | Outpatient (CLI) | payer MEDICARE, SELFPAY ==
--- NOTE | 2023-05-09 08:22 | CT_ITS ---
APPROVED REPORT Trial Judge: CLINICAL INDICATION Chest Pain TECHNIQUE Image Acquisition: A 128 slice MDCT scanner ([id number] [id number]) was used for data acquisition. A noncontrast coronary calcium scan was performed. A CT attenuation threshold of 130 Hounsfield units (HU) was used for the detection of calcium in contiguous voxels of 1 sq mm in area to be counted as individual lesions. Bolus tracking in the ascending aorta with a threshold of 180 HU was performed. Immediately afterwards, ECG synchronized cardiac CT was then performed from the cardiac base to apex using retrospective gating with ECG tube current modulation. A total of 85 mL of Isovue 370 mg/mL contrast medium was administered at 5 mL/sec followed by a saline flush using a biphasic injection protocol. A tube voltage of 120 KVp was used. The patient received the following medications prior to the cardiac CT. 75 mg of oral metoprolol 15 mg of oral ivabradine 0.8 mg of sublingual nitroglycerin The average heart rate at the time of acquisition was 55 bpm and regular. Image Reconstruction Transaxial images were reconstructed at 0.67 mm slide thickness. Data was reviewed interactively on an advanced workstation capable of 2 and 3-dimensional displays in all conventional reconstruction formats, including multiplanar reformations, maximum intensity projections, curved multiplanar reformations, and volume rendered reconstructions. When applicable, selected routine images describing the relevant coronary anatomy and pathology were saved and sent to PACS. Complications None Technical Quality Overall image quality was good. Coronary artery opacification was adequate. Total DLP (Dose-Length Product) is 1436.5 mGy-cm. The reported value represents the total of one or more individual components during the CT acquisition of this date and at this time, and as such, the same value may appear in more than one CT report depending on the interpreting/reporting physicians. COMPARISON None FINDINGS CT Coronary Calcium Scoring LMA (Left Main Artery) = 0 LAD (Left Anterior Descending) = 533 LCX (Left Coronary Circumflex) = 1 RCA (Right Coronary Artery) = 31 Total Calcium Score = 565 using the AJ-130 method. The observed calcium score of 565 is at 95th percentile for subjects of the same age, sex, and race/ethnicity. The interpretation of the calcium heart score is based on the following continuum*: 0 = no calcified plaque detected (risk of coronary artery disease is very low ??? less than 5%) 1-10 = calcium detected in extremely minimal levels (risk of coronary diseases is still low ??? less than 10%) 11-100 = mild levels of plaque detected with certainty (mild or minimal narrowing of heart arteries is likely) 101-400 = definite,at least moderate levels of plaque detected (relatively high risk of a heart attack within 3-5 years) >401-999 = extensive levels of plaque detected (high risk of heart attack, high levels of vascular disease are present, high likelihood of at least one significant coronary narrowing) *The calcium heart score quantifies the burden of coronary calcification/plaque in the coronary arteries. The calcium heart score is not able to evaluate the presence or burden of non-calcified (i.e. soft) plaque. There is also mild calcification in the mitral annulus and the ascending and descending thoracic aorta. Coronary CT Angiography The coronary arterial system is right dominant. Quantitative Stenosis Grading: Left Main (LM): The left main originates normally from the left sinus of Valsalva. The LM bifurcates into the left anterior descending artery and left circumflex artery. There is mild noncalcified ostial LM with< 30% luminal stenosis. There is also calcified plaque in the distal LM with < 30% luminal stenosis. Left Anterior Descending (LAD) and Diagonal Branches: The LAD gives off 3 diagonal branch(es). There are multiple foci of mixed calcified/noncalcified plaque in the proximal, with up to 70-90% luminal stenosis. There is no evidence of LAD-myocardial bridge. Left Circumflex (LCX) and Obtuse Marginals (OM): The LCX gives off 1 Obtuse Marginal (OM) branch(es). There is minimal calcification in the proximal LCX with no luminal stenosis Right Coronary Artery (RCA): The RCA originates normally from the right sinus of Valsalva. The RCA gives off a posterior descending artery (PDA) and posterolateral (PL) branches. There is focal calcification in the proximal RCA, but without evidence of luminal stenosis. Non-Coronary Cardiac Findings: Analysis of the left ventricular (LV) structure and function was performed after 3-D reconstruction of the LV from axial images, with user-corrected automatic contouring for assessment of LV volumes and user-defined reconstruction from oblique planes for measurement of 3-D cardiac structure and function. -The left ventricle systolic function is normal (LVEF 65%) -There is no left atrial appendage filling defect. Two right pulmonary veins and two left pulmonary veins drain normally into the left atrium. -No pericardial thickening or calcification. -Central and branch pulmonary arteries in the [id number] are unremarkable. -Thoracic aorta within the visualized thoracic aortic-branches in the [id number] is unremarkable. Extracardiac Structures No significant extra-cardiac findings. Note, however, that this study is focused on the cardiac findings. IMPRESSION -Extensive coronary calcification with an Agatston score = 525 using the AJ-130 method. -The observed calcium score of 525 is at 95th percentile for subjects of the same age, sex, and race/ethnicity. -Multivessel atherosclerotic disease with presence of significant flow-limiting atherosclerosis in the proximal LAD segment. -CAD-RADS 4A. Management recommendations per ACC/AHA guidelines*, as clinically appropriate. *Recommendations: CAD RADS 0: Reassurance. Consider non-atherosclerotic causes of chest pain. CAD RADS 1: Consider non-atherosclerotic causes of chest pain. Consider preventive therapy and risk factor modification. CAD RADS 2: Consider non-atherosclerotic causes of chest pain. Consider preventive therapy and risk factor modification, particularly for patients with nonobstructive plaque in multiple segments. CAD RADS 3: Consider further functional testing. Consider symptom-guided anti-ischemic and preventive pharmacotherapy as well as risk factor modification per published guideline statements. CAD RADS 4A: Consider further functional testing or invasive coronary angiography with revascularization per published guideline statements. Consider symptom-guided anti-ischemic and preventive pharmacotherapy as well as risk factor modification per published guideline statements. CAD RADS 4B: Invasive coronary angiography recommended with revascularization per published guideline statements. Consider symptom-guided anti-ischemic and preventive pharmacotherapy as well as risk factor modification per published guideline statements. CAD RADS 5: Consider invasive angiography and/or viability assessment with revascularization per published guideline statements. Consider symptom-guided anti-ischemic and preventive pharmacotherapy as well as risk factor modification per published guideline statements. CRITICAL RESULT None COMMUNICATION Per this written report The coronary and cardiac findings of this CCTA were reviewed, reported, and signed by Kenn Ricks MD (Bilingual Sales Representative) Conclusion Electronically signed by : Cristy Ricks MD 05/13/2023 11:53:32
[2023-05-09 08:41] VITALS: BMI 26.6
[2023-05-09 08:46] VITALS: BP 143/89; PULSE 76; RESP 18; TEMP 36.6; O2SAT 99
[2023-05-09] MEDS: METOPROLOL TARTRATE 50MG TABLET *IVABRADINE+METOPROLOL REGIMINE 75 MG PO (08:54)
[2023-05-09] MEDS: IVABRADINE HCL 7.5MG TABLET *IVABRADINE+METOPROLOL REGIMINE 15 MG PO (08:54)
--- NOTE | 2023-05-09 08:59 | PC.NURSE ---
DROPPED METOPROLOL 50MG ON FLOOR, GOT ANOTHER ONE OUT OF THE OMNI.
[2023-05-09 09:08] LABS: Chloride 103 mmol/L (98-107); Potassium 3.8 mmoL/L (3.5-5.1); Sodium 137 mmol/L (136-145)
[2023-05-09 09:11] LABS: Anion Gap 6.8 mEq/L (5-15); Blood Urea Nitrogen 20 mg/dl (7-17); Calcium 9.2 mg/dl (8.4-10.2); Carbon Dioxide 31 mmol/L (22.0-30.0); Creatinine Clearance Estimated 63 mL/min (50-200); Estimated Glomerular Filt Rate 62 ml/min (>60); GFR (African American) 76 ML/MIN (>60); Glucose 107 mg/dl (74-100)
[2023-05-09 10:25] VITALS: BP 125/95; PULSE 66
--- NOTE | 2023-05-09 10:25 | PC.NURSE ---
NITRO 0.8MG GIVEN SL BP 125/95
[2023-05-09 10:35] VITALS: BP 104/53; PULSE 70
--- NOTE | 2023-05-09 10:35 | PC.NURSE ---
TEST COMPLETE, VSS, NO C/O
[2023-05-09 10:40] VITALS: BP 116/73; PULSE 70; O2SAT 97
[2023-05-09] MEDS: NITROGLYCERIN 0.4MG SL TABLET 0.800000000000000044 MG SL (10:41)
--- NOTE | 2023-05-09 10:46 | CA_ITS ---
APPROVED REPORT EXAM: Comprehensive 2D, Doppler, and color-flow Echocardiogram Paring Machine Operator: Giana Bernabe RT(R) Ht: 5 ft 6 in Wt: 160lbs BSA: 1.82 BP: 159/88 mmHg Indications: Angina, left shoulder pain, HTN, hyperlipdiemia, abn EKG 2D Dimensions EF AP4 47.10 % GL Strain -12.6 % M-Mode Dimensions RVDd 3.04 cm (0.9-2.6) LA Diam 2.12 cm (1.9-4.0) LVDd 3.93 cm (3.5-5.7) LVDs 2.97 cm (3.5-5.7) IVSd 0.72 cm (0.6-1.1) PWd 0.72 cm (0.6-1.1) EF (Teich) 49.00% FS 24.40% EDV (Teich) 67.10 mL ESV (Teich) 34.20 mL LV Diastology E Decel Time 203 (160-240 msec) E/A Ratio 1.3 Mitral Valve MV E Max Lazaro. 97.0 (40-130 cm/s) MV A Velocity 73.0 (40-130 cm/s) E/A Ratio 1.33 MV PHT 60.0 ms Tricuspid Valve TR P. Velocity 202.00 cm/s RAP Estimate 10.00 mmHg RVSP 26.40 mmHg Left Ventricle The left ventricle is normal size. The left ventricular systolic function is normal. The left ventricular ejection fraction is within the normal range. There is normal left ventricular wall thickness. There is normal LV segmental wall motion. The left ventricular diastolic function is normal. LVEF is 55%. Right Ventricle Right ventricle is mildly dilated. Right ventricle is mildly hypokinetic. Atria The left atrium size is normal. The right atrium size is normal. There is no Doppler evidence of interatrial shunt. Aortic Valve The aortic valve is mildly thickened. There is no aortic valvular stenosis. No aortic regurgitation is present. Mitral Valve The mitral valve leaflets are mildly thickened. No evidence of mitral valve stenosis. Trace mitral regurgitation. Tricuspid Valve The tricuspid valve leaflets are thin and pliable. Mild tricuspid regurgitation. RVSP is 20-25 mmHg. Pulmonic Valve The pulmonary valve is normal in structure. Trace pulmonic regurgitation. Great Vessels The aortic root is normal in size. The ascending aorta is normal in size. IVC is normal in size and collapses >50% with inspiration. Pericardium There is no pericardial effusion. Other Information Study Quality: Fair Conclusion Normal LV systolic function. Mild RV dilation with mild reduction in RV function. Mild TR. RVSP 20-25 mmHg. Electronically signed by : Cristy Ricks MD 05/13/2023 10:30:21
--- NOTE | 2023-05-09 10:46 | PC.NURSE ---
PT TO POST OP
[2023-05-09 10:50] VITALS: BP 107/64; PULSE 54; O2SAT 98
--- NOTE | 2023-05-09 10:51 | PC.NURSE ---
VSS STABLE, NO C/O AT THIS TIME.
[2023-05-09] MEDS: 0.9 % SODIUM CHLORIDE 50 ML VIAL IV (11:03)
[2023-05-09] MEDS: IOPAMIDOL-370 (76%);100ML BOTTLE 85 ML IV (11:03)
[2023-05-09] MEDS: SODIUM CHLORIDE 0.9% 10ML SYR (RAD ONLY) 10 ML IV (11:03)
== END 2023-05-09 11:10 | disposition home or self-care (01) ==
PROVIDERS: PCP Nurse Practitioner Family; Visit Provider Internal Medicine
DX: E78.5 Hyperlipidemia, unspecified (principal); I10 Essential (primary) hypertension; I20.89 Other forms of angina pectoris; R94.31 Abnormal electrocardiogram [ECG] [EKG]
CPT/HCPCS: 75571; 75574; 80048; 93306; Q9967

== ENCOUNTER 2023-06-06 11:08 | Outpatient (CLI) | payer MEDICARE, SELFPAY ==
--- NOTE | 2023-06-06 11:08 | NM_ITS ---
APPROVED REPORT Exam: Nuclear Stress Test Indication: palpitations..fatigue..arm pain Patient Location: Outpatient Stress Tech: Thea Jovel [place] Tech:RO Elliott RT(R)(N) Ht: 5 ft 5 in Wt: 160 lbs Bra Size: 36d HR: 80 bpm BP: 177/93 mmHg BSA: 1.80 m2 TID: 0.98 BMI: 26.6 History: palpitations..fatigue..arm pain Procedure: Patient exercised on Yuriy protocol 5:30 minutes and sec, resting heart rate 80 bpm, resting blood pressure 177/93 mmHg, with exercise maximum heart rate achived was 167 bpm which is 107 % of the maximum predicted heart rate and blood pressure was 192/90 mmHg. Test was stopped due to fatigue...soa. Patient denied any complaint of chest pain. Patient has exercise capacity, achieved 7.0 METs of workload on treadmill, the blood pressure response to exercise was . Cardiac Stress and Resting SPECT Images: Cardiac Stress and Resting SPECT images were obtained using technetium 99m Myoview 31.2 mCi stress and 10.98 mCi at rest. Resting and stress imaging in supine and prone positions demonstrate no evidence of fixed or reversible perfusion defects. Gated imaging demonstrates normal global and regional LV systolic function. LVEF is calculated at 65%. Conclusion: No evidence of fixed or reversible perfusion defects. Gated imaging demonstrates normal global and regional LV systolic function. LVEF is calculated at 65%. Electronically signed by : Cristy Ricks MD 06/06/2023 15:17:05
[2023-06-06] MEDS: SODIUM CHLORIDE 0.9% 10ML SYR (RAD ONLY) 10 ML IV ×2 (13:10)
[2023-06-06] MEDS: ISOTOPE MYOVIEW (PER STUDY) 1 DOSE IV (13:10)
--- NOTE | 2023-06-06 13:48 | CA_ITS ---
APPROVED REPORT Exam: Exercise Treadmill Technologist: Thea Salazar, Ht: 5 ft 5 in Wt: 169 lbs BSA: 1.84 m2 HR: 75 bpm BP: 137/84 mmHg Rhythm: NSR Indications: Angina Medical History Medications: Fish Oil,,,,, Atorvastatin,,,,, Flonase,,,,, Calcium,,,,, MeLOXICAM,,,,, Esomeprazole,,,,, Levocetirizine,,,,, LiNZESS,,,,, Losartan-HCTZ,,,,, Zinc,,,,, MVI,,,,, Vit C, D3,,,,, Stress Test Details Test: Yuriy HR Resting HR: 80 bpm Max Heart Rate (APMHR): 153 bpm Max HR Achieved: 164 bpm Target HR (85% APMHR): 130 bpm % of APMHR: 107 Recovery HR: 95 bpm HR response to stress: Normal HR response to stress BP Resting BP: 177.0/93.0 mmHg Max BP: 192.0/90.0 mmHg Recovery BP: 137.0/80.0 mmHg BP response to stress: Normal blood pressure response to stress. ECG Resting ECG: NSR Stress ECG: < 0.[address] depression Arrhythmia: Occasional PVCs Clinical Exercise duration: 05:30 min Highest Stage Achieved: III Exercise capacity: 7.0 METs Overall Exercise Capacity for Age: Average Stress ECG Conclusion The patient was able to walk for a total of 5 minutes, 30 seconds. She achieved a total of 7.0 METS. She has average exercise capacity compared to age and sex matched peers. She has not normal HR and BP response to exercise. Max HR: 164 % of PM: 107% Max BP: 192/90 METs: 7.0 Test stopped due to: SOA Symptoms: No chest pain Arrhythmias/Ectopy: Occasional PVCs ST-T Changes: < 0.5mm upsloping ST depression Conclusion: Elevated BP at baseline. Average exercise capacity. No evidence of ischemia on ECG at peak stress. Myoview images reported separately. Test Summary REST . . . . . . . Sitting REST . . . . . . . Standing REST 04:28 0.0 0.0 80 . 177/ 93 . . Stage 1 01:00 10.0 1.7 108 . . . . Stage 1 02:00 10.0 1.7 126 . . . . Stage 1 03:00 10.0 1.7 136 . 192/ 90 . . Stage 2 01:00 12.0 2.5 152 . . . . Stage 2 . . . . . . . Cardiolite injected Stage 2 02:00 12.0 2.5 160 . . . . Stage 2 02:30 12.0 2.5 162 . . . Stop exercise at 05:30 RECOVERY 01:00 0.0 0.0 147 . . . . RECOVERY 02:00 0.0 0.0 123 . . . . RECOVERY 03:00 0.0 0.0 106 . . . . RECOVERY 04:00 0.0 0.0 101 . 165/ 72 . . RECOVERY 05:00 0.0 0.0 100 . 160/ 75 . . RECOVERY 06:00 0.0 0.0 95 . 160/ 75 . . RECOVERY 06:39 0.0 0.0 92 . 137/ 80 . . Electronically signed by : Cristy Ricks MD 06/06/2023 15:16:30
== END 2023-06-06 23:59 ==
LOC: RAD 11:08
PROVIDERS: PCP Nurse Practitioner Family; Visit Provider Internal Medicine
DX: R94.31 Abnormal electrocardiogram [ECG] [EKG] (principal); R93.1 Abnormal findings on diagnostic imaging of heart and coronary circulation; I20.89 Other forms of angina pectoris; M79.602 Pain in left arm; I10 Essential (primary) hypertension; E78.5 Hyperlipidemia, unspecified
CPT/HCPCS: 78452; 93017; 93018; A9502

== ENCOUNTER 2023-09-10 10:35 | Outpatient (CLI) | payer MEDICARE, SELFPAY ==
[2023-09-10 11:48] LABS: Chloride 105 mmol/L (98-107); Sodium 138 mmol/L (136-145)
[2023-09-10 11:49] LABS: Potassium 4.7 mmoL/L (3.5-5.1)
[2023-09-10 11:51] LABS: Alanine Aminotransferase 42 U/L (12-78); Albumin Level 4.4 g/dl (3.5-5.0); Albumin/Globulin Ratio 1.7 (1.1-1.8); Alkaline Phosphatase 91 U/L (38-126); Anion Gap 11.7 mEq/L (5-15); Aspartate Amino Transferase 39 U/L (14-36); Bilirubin,Total 0.6 mg/dl (0.2-1.3); Blood Urea Nitrogen 28 mg/dl (7-17); Carbon Dioxide 26 mmol/L (22.0-30.0); Cholesterol 180 mg/dl (140-200); Estimated Glomerular Filt Rate 62 ml/min (>60); GFR (African American) 76 ML/MIN (>60); Globulin 2.6 g/dL (1.3-3.2); Triglycerides 149 mg/dl (30-150); VLDL Cholesterol 30 mg/dL (0-40)
[2023-09-10 11:52] LABS: Calcium 9.8 mg/dl (8.4-10.2); Chol/HDL Ratio 3.8 (1-3.5); Glucose 104 mg/dl (74-100); HDL Cholesterol 48 mg/dl (40-60)
[2023-09-10 12:23] LABS: Direct LDL Cholesterol 93.92 mg/dL (100-129)
== END 2023-09-10 23:59 | disposition home or self-care (01) ==
LOC: LAB.DROPOF 10:35
PROVIDERS: PCP Nurse Practitioner Family; Visit Provider Nurse Practitioner Family
DX: E78.5 Hyperlipidemia, unspecified (principal); I10 Essential (primary) hypertension
CPT/HCPCS: 80053; 80061

== ENCOUNTER 2024-04-10 13:41 | Outpatient (CLI) | payer MEDICARE, SELFPAY ==
[2024-04-10 13:31] LABS: Basophils # 0.1 K/mm3 (0-0.2); Basophils % 1.4 % (0.1-2.0); Eosinophils # 0.4 K/mm3 (0.0-0.4); Eosinophils % 8.6 % (0.1-12.0); Hematocrit 39.8 % (37.0-47.0); Lymphocytes # 1.3 K/mm3 (0.7-4.5); Lymphocytes % 28.9 % (10-50); Mean Corpuscular HGB Conc 32.7 g/dL (31.8-35.4); Mean Corpuscular Hemoglobin 30.7 pg (27.0-31.2); Mean Corpuscular Volume 93.9 fl (81-99); Mean Platelet Volume 10.2 fl (7.4-10.4); Monocytes # 0.3 K/mm3 (0.1-1.0); Monocytes % 6.1 % (1.7-9.3); Neutrophils # 2.4 K/mm3 (1.8-7.8); Neutrophils % 54.8 % (37.0-80.0); Platelet Count 301 K/mm3 (142-424); Red Blood Count 4.24 M/mm3 (4.20-5.40); Red Cell Distribution Width 13.6 % (11.5-17.5); White Blood Count 4.4 K/mm3 (4.8-10.8)
[2024-04-10 13:44] LABS: Microalbumin/Creatinine Ratio 5.7
[2024-04-10 13:46] LABS: Creatinine,Urine Random 166 mg/dL (Not Estab.)
[2024-04-10 13:50] LABS: Albumin Level 4.9 g/dl (3.5-5.0); Chloride 103 mmol/L (98-107); Potassium 4.6 mmoL/L (3.5-5.1); Sodium 138 mmol/L (136-145)
[2024-04-10 13:53] LABS: Alanine Aminotransferase 42 U/L (12-78); Albumin/Globulin Ratio 2.2 (1.1-1.8); Alkaline Phosphatase 86 U/L (38-126); Anion Gap 13.6 mEq/L (5-15); Aspartate Amino Transferase 42 U/L (14-36); Bilirubin,Total 0.6 mg/dl (0.2-1.3); Blood Urea Nitrogen 30 mg/dl (7-17); Calcium 10.3 mg/dl (8.4-10.2); Carbon Dioxide 26 mmol/L (22.0-30.0); Cholesterol 176 mg/dl (140-200); Estimated Glomerular Filt Rate 55 ml/min (>60); GFR (African American) 67 ML/MIN (>60); Globulin 2.2 g/dL (1.3-3.2); Glucose 95 mg/dl (74-100); Total Protein,Serum 7.1 g/dl (6.3-8.2); Triglycerides 152 mg/dl (30-150); VLDL Cholesterol 30 mg/dL (0-40)
[2024-04-10 13:54] LABS: HDL Cholesterol 58 mg/dl (40-60)
[2024-04-10 14:04] LABS: Direct LDL Cholesterol 88.08 mg/dL (100-129)
[2024-04-10 14:23] LABS: Thyroid Stimulating Hormone 2.15 uIU/mL (0.465-4.68)
== END 2024-04-10 23:59 | disposition home or self-care (01) ==
LOC: LAB.DROPOF 13:42
PROVIDERS: PCP Nurse Practitioner Family; Visit Provider Nurse Practitioner Family
DX: Z00.00 Encounter for general adult medical examination without abnormal findings (principal); E78.5 Hyperlipidemia, unspecified; I10 Essential (primary) hypertension; E55.9 Vitamin D deficiency, unspecified; Z13.1 Encounter for screening for diabetes mellitus; R53.83 Other fatigue
CPT/HCPCS: 80053; 80061; 82043; 82570; 84443; 85025

== ENCOUNTER 2024-11-27 11:16 | Outpatient (CLI) | payer MEDICARE, BC, SELFPAY ==
--- OUTSIDE RECORDS SUMMARY | 2024-11-30 09:53 | XMS_ITS | Clinical Summary ---
Author Organization [employer] ([place], [place], [place], [place]) Address [address] [place] [address] Care Team Providers Care Territory Service Representative Name Role Phone Toyin Mabry APRN Primary Care Provider Social History Tobacco Use Types Packs/Day Years Used Date Smoking Tobacco: Never Assessed Comments Unknown Sex and Gender Information Value Date Recorded Sex Assigned at Not on file Legal Sex Female 6:45 PM CDT Gender Identity Not on file Sexual Orientation Not on file Plan of Treatment Upcoming Encounters Date Type Department Care Team (Late st Contact Info) Description 07/13/2025 1:[address] [facility] Breast Imaging [address] [facility] [address] [place] [address] Toyin Mabry APRN [address] [address] Health Maintenance Due Date Last Done Comments CT Colonography 1956 Colonoscopy 1956 Colorectal Cancer Screening 1956 DXA SCAN 1956 FOBT/FIT 1956 Fit-DNA (Cologuard) 1956 Sigmoidoscopy 1956 Depression Screening (12+) 1968 Tobacco Cessation Counseling and Screening (12+) 1968 Hepatitis C Screening 02/11/1974 DTAP/TDAP/TD VACCINES (1 - Tdap) 02/11/1975 Pneumococcal 50+ years (1 of 1 - PCV) 02/11/2006 Shingles Vaccine (Zoster) (1 of 2) 02/11/2006 Falls Risk Screening 03/25/2024 Medicare Initial AWV G0438 03/26/2024 COVID-19 VACCINE (2024-2 6 season) 2024 01/09/2022, 02/14/2021, 04/27/2020, Additional history exists Influenza Vaccine (#1) 2024 01/04/2023 Breast Cancer Screening 07/09/2026 07/09/2024 Respiratory Syncytial Virus (RSV) Adult or (1 - 1-dose 75+ series) 02/11/2031 Procedures Procedure Name Priority Date/Time Associated Diagnosis Comments MM SCREENING BILATERAL WITH IMPLANTS WITH MARIAELENA WITH CAD Routine 07/09/2024 1:59 PM EDT Visit for screening mammogram from Last 3 Months or Most Recently Relevant to Health Maintenance Results * MM Screening Bilateral With Implants w MARIAELENA w CAD (07/09/2024 1:59 PM EDT) Anatomical Region Laterality Modality Breast Bilateral Mammography 08/05/2024 5:14 PM EDT Narrative 08/05/2024 5:21 PM EDT PROCEDURE: Digital screening mammogram. REASON FOR EXAM: Routine screening. FAMILY HISTORY: No family history of breast cancer. COMPARISON STUDY: No prior exams from [facility]. Outside prior exams have not been received for comparison. FINDINGS: Craniocaudal and mediolateral oblique images of both breasts were obtained with implants displaced and in view. There are scattered areas of fibroglandular density. Bilateral subpectoral saline implants are present. There is no evidence of dominant mass, architectural distortion, or suspicious calcifications. ACR BI-RADS 1: Negative. The mammogram was interpreted with the benefit of computer aided detection (CAD). RECOMMENDATIONS: Annual screening mammography. A letter including results and recommendations was sent to the patient to include density notification.. Patient information was entered into a reminder system with a target due date for the next mammogram. At our facility, a [place] marker is positioned over a visible skin lesion and a linear marker is used to indicate a scar. A triangular marker is placed on a self reported palpable finding. Toyin Mabry APRN IMG MAMMOGRAPHY ORDERABLES F inal Result from Last 3 Months or Most Recently Relevant to Health Maintenance [place] [id number] [facility] ACCESS PPO MAP Care Teams Territory Service Representative Relationship Specialty Start Date End Date MabryToyin, WILY [address] [address] PCP - General Nurse Practitioner 06/03/24
--- OUTSIDE RECORDS SUMMARY | 2024-11-30 09:53 | XMS_ITS | Encounter Summary ---
Author Organization [id number] ([place], [place], [place], [place]) Address [address] [facility] [place] [address] Care Team Providers Care Boat Fueler Name Role Phone Toyin Mabry APRN Primary Care Provider Reason for Referral * Mammography (Routine) - Authorized Specialty Diagnoses / Procedures Referred By Contac t Referred To Contact Diagnoses Visit for screening mammogram Procedures MM Screening Bilateral With Implants w MARIAELENA w CAD Toyin Mabry APRN [address] [address] Phone: tel: fax: Referral ID Status Reason Start Date Expiration Date V isits Requested Visits Authorized [id number] Authorized 07/13/2025 07/13/2026 1 1 Encounter Details Date Type Department Care Team (Late st Contact Info) Description 07/09/2024 Outside Orders [facility] Central Scheduling [address] [place] [address] Toyin Mabry APRN [address] [address] Visit for screening mammogram (Primary Dx) Social History Tobacco Use Types Packs/Day Years Used Date Smoking Tobacco: Never Assessed Comments Unknown Sex and Gender Information Value Date Recorded Sex Assigned at Not on file Legal Sex Female 6:45 PM CDT Gender Identity Not on file Sexual Orientation Not on file documented as of this encounter Plan of Treatment Upcoming Encounters Date Type Department Care Team (Late st Contact Info) Description 07/13/2025 1:30 PM EDT Appointment [facility] Breast Imaging [address] [facility] [address] [place] [address] Toyin Mabry, BELT WORKER [address] [place] [address] Scheduled Orders Name Type Priority Associated Diagnoses Orde r Schedule MM Screening Bilateral With Implants w MARIAELENA w CAD Imaging Routine Visit for screening mammogram Expected: 07/13/2025, Expires: 01/08/2026 documented as of this encounter Visit Diagnoses Diagnosis Visit for screening mammogram- Primary documented in this encounter Care Teams Boat Fueler Relationship Specialty Start Date End Date Toyin Mabry, BELT WORKER [address] [place] [address] PCP - General Nurse Practitioner 06/03/24 documented as of this encounter
--- OUTSIDE RECORDS SUMMARY | 2024-11-30 09:53 | XMS_ITS | Referral Summary ---
Author Organization [employer] ([place], [place], [place], [place]) Address [address] [place] [address] Care Team Providers Care Bag Machine Operator Name Role Phone Toyin Mabry APRN Primary Care Provider [phone] Social History Tobacco Use Types Packs/Day Years [...] Info) Description 07/13/2025 1:30 PM EDT Appointment [facility] Breast Imaging [address] [facility] [address] [place] [address] Toyin Marby APRN [address] [address] Procedures Procedure Name Priority Date/Time Associated Diagnosis [...] cancer. COMPARISON STUDY: No prior exams from [facility]. Outside prior exams have not been received [...] the next mammogram. At our facility, a [place] marker is positioned over a visible skin lesion and a linear marker is used to indicate a scar. A triangular marker is placed on a self reported palpable finding. Toyin Marby APRN IM MAMMOGRAPHY ORDERABLES F inal Result from Last 3 Months or Most Recently Relevant to Health Maintenance Insurance [facility] ACCESS PPO MAP Care Teams Bag Machine Operator Relationship Specialty Start Date End Date Toyin Mabry APRN [address] [address] PCP - General Nurse Practitioner 06/03/24
--- OUTSIDE RECORDS SUMMARY | 2024-11-30 09:53 | XMS_ITS | Encounter Summary ---
Author Organization [employer] ([place], [place], [place], [place]) Address [address] [facility] [place] [address] Care Team Providers Care Bed Maker Name Role Phone Toyin Mabry APRN Primary Care Provider Reason for Referral * Mammography (Routine) - Closed Specialty Diagnoses / Procedures Referred By Contaly t Referred To Contact Diagnoses Visit for screening mammogram Procedures MM Screening Bilateral With Implants w MARIAELENA w CAD Toyin Mabry APRN [address] [address] Phone: tel: fax: Referral ID Status Reason Start Date Expiration Date Visits Re quested Visits Authorized [id number] Closed 07/09/2024 07/09/2025 1 1 Encounter Details Date Type Department Care Team (Late st Contact Info) Description 07/09/2024 Outside Orders [facility] Central Scheduling 1 [place] [address] Toyin Mabry APRN [address] [address] Visit for screening mammogram (Primary [...] Info) Description 07/13/2025 1:30 PM EDT Appointment [facility] Breast Imaging [address] [facility] [address] [place] [address] Toyin Mabry APRN [address] [address] documented as of this encounter Results * MM Screening Bilateral With Implants w MARIAELENA w CAD (07/09/2024 1:59 PM EDT) Anatomical Region Laterality Modality Breast Bilateral Mammography 08/05/2024 5:14 PM EDT Narrative 08/05/2024 5:21 PM EDT PROCEDURE: Digital screening mammogram. REASON FOR EXAM: Routine screening. FAMILY HISTORY: No family history of breast cancer. COMPARISON STUDY: No prior exams from [facility]. Outside prior exams have not [...] the next mammogram. At our facility, a [place] marker is positioned over a visible skin lesion and a linear marker is used to indicate a scar. A triangular marker is placed on a self reported palpable finding. us Toyin Raghavendra LINEN ROOM WORKER IMG MAMMOGRAPHY ORDERABLES F inal Result documented in this encounter Visit Diagnoses Diagnosis Visit for screening mammogram Visit for screening mammogram- Primary documented in this encounter Care Teams Bed Maker Relationship Specialty Start Date End Date Toyin Mabry APRN [address] [place] [address] PCP - General Nurse Practitioner 06/03/24 documented as of this encounter
== END 2024-11-27 23:59 ==
LOC: LAB.DROPOF 11-30 09:48
PROVIDERS: PCP Nurse Practitioner Family; Visit Provider Nurse Practitioner Family
DX: J02.9 Acute pharyngitis, unspecified (principal)
CPT/HCPCS: 87070